=== PATIENT | female | born 1995 | race Caucasian/White ===

== ENCOUNTER 2016-12-14 19:33 | Emergency (ER) | payer SELFPAY | END 2016-12-14 21:00 | disposition left against medical advice (07) | LOC: D.ER 19:33 | DX: T20.00XA Burn of unspecified degree of head, face, and neck, unspecified site, initial encounter (principal); X08.8XXA Exposure to other specified smoke, fire and flames, initial encounter; Y93.9 Activity, unspecified; Y92.89 Other specified places as the place of occurrence of the external cause ==